=== PATIENT | male | born 1960 | race Caucasian/White ===

== ENCOUNTER 2016-05-16 17:07 | Emergency (ER) | payer OTHER ==
[~2016-05-16] VITALS: Ht 185.4 cm; Wt 88.5 kg
[2016-05-16 18:18] LABS: Basophils # (auto) 0 uL; Basophils % (auto) 0.5 % (0.0-2.0); Eosinophils # (auto) 0 uL; Eosinophils % (auto) 0.3 % (0.0-7.0); Hematocrit 46.7 % (41.0-53.0); Hemoglobin 15.3 g/dL (13.5-17.5); Lymphocytes # (auto) 0.8 uL; Lymphocytes % (auto) 12.6 % (10.0-50.0); Mean Corpuscular Hemoglobin 29.2 pg (28.0-32.0); Mean Corpuscular Hgb Conc. 32.8 g/dL (32.0-36.0); Mean Corpuscular Volume 89.2 fL (80.0-100.0); Mean Platelet Volume 9.4 fL (7.4-10.4); Monocytes # (auto) 0.5 uL; Monocytes % (auto) 8.9 % (0.0-12.0); Neutrophils # (auto) 4.8 uL; Neutrophils % (auto) 77.7 % (37.0-80.0); Platelet Count (auto) 200 10^3/uL (140-450); Red Cell Distribution Width 14.4 % (11.6-16.0); White Blood Cell 6.1 10^3/uL (4.4-10.8)
[2016-05-16 18:26] LABS: Albumin 3.8 g/dL (3.4-5.0); BUN/Creatinine Ratio 14.6; Calcium 8.8 mg/dL (8.5-10.1); Potassium 3.5 mmol/L (3.5-5.1)
[2016-05-16 18:30] LABS: Bilirubin, Total 0.3 mg/dL (0.2-1.0); Total Protein 8.1 g/dL (6.4-8.2)
[2016-05-16 20:01] LABS: Urine Bilirubin Negative (Negative); Urine Blood Negative /uL (Negative); Urine Color Yellow (Yellow); Urine Glucose Normal (Normal); Urine Ketone Negative (Negative); Urine Nitrite Negative (Negative); Urine RBC <1 /hpf (0 - 3); Urine Squamous Epithelial Cell FEW /hpf (<5); Urine pH 5.5 (5.0-8.0)
[2016-05-16] MEDS ORDERED: SODIUM CHLORIDE 0.9% 500 ML IV ONE (20:25)
[2016-05-16] MEDS ORDERED: ONDANSETRON HCL 4 MG/2 ML VIAL IV ONE (20:30)
[2016-05-16] MEDS ORDERED: HYDROmorphone HCL 2 MG/ML VL IV ONE (20:30)
[2016-05-16 21:03] VITALS: BP 150/93
== END 2016-05-16 21:59 | disposition home or self-care (01) ==
LOC: ER 17:07
DX: J20.9 Acute bronchitis, unspecified (principal); M54.5 Low back pain; M79.1 Myalgia; F17.210 Nicotine dependence, cigarettes, uncomplicated
CPT/HCPCS: 36415; 71020; 74176; 80053; 81001; 83605; 85025; 87040; 93005; 94761; 96361; 96374; 96375; 99285; J1170; J2405; J7040

== ENCOUNTER 2016-06-12 19:11 | Emergency (ER) | payer OTHER ==
[~2016-06-12] VITALS: Ht 182.9 cm; Wt 88.5 kg
[2016-06-12 19:15] VITALS: BP 139/88
[2016-06-12] MEDS ORDERED: cefTRIAXone SOD 1,000 MG VL IM ONE (20:15)
[2016-06-12 21:14] LABS: Urine Bilirubin Negative (Negative); Urine Color PINK (Yellow); Urine Glucose Normal (Normal); Urine Ketone Negative (Negative); Urine Mucus FEW (None Seen); Urine RBC 3 /hpf (0 - 3); Urine Squamous Epithelial Cell FEW /hpf (<5); Urine pH 5.5 (5.0-8.0)
[2016-06-12 21:16] LABS: Urine Blood 1+ /uL (Negative); Urine Nitrite POSITIVE (Negative)
== END 2016-06-12 20:32 | disposition home or self-care (01) ==
LOC: ER 19:24
DX: N39.0 Urinary tract infection, site not specified (principal); F17.210 Nicotine dependence, cigarettes, uncomplicated
CPT/HCPCS: 81001; 96372; 99283; J0696

== ENCOUNTER 2016-11-23 20:19 | Emergency (ER) | payer OTHER ==
[~2016-11-23] VITALS: Ht 185.4 cm; Wt 90.7 kg
[2016-11-23 20:29] VITALS: BP 143/97
[2016-11-23 21:18] LABS: Basophils # (auto) 0.1 uL; Basophils % (auto) 0.7 % (0.0-2.0); Eosinophils # (auto) 0.2 uL; Hematocrit 46.2 % (41.0-53.0); Hemoglobin 15.6 g/dL (13.5-17.5); Lymphocytes # (auto) 2.8 uL; Mean Corpuscular Hemoglobin 29.7 pg (28.0-32.0); Mean Corpuscular Hgb Conc. 33.7 g/dL (32.0-36.0); Mean Corpuscular Volume 87.9 fL (80.0-100.0); Mean Platelet Volume 8.5 fL (6.9-10.8); Monocytes # (auto) 0.8 uL; Neutrophils # (auto) 4.5 uL; Neutrophils % (auto) 54.3 % (37.0-80.0); Nucleated Red Blood Cells % 0.2 %; Platelet Count (auto) 205 10^3/uL (140-450); Red Cell Distribution Width 14.8 % (11.8-14.3); White Blood Cell 8.4 10^3/uL (4.4-10.8)
[2016-11-23 21:33] LABS: Albumin 3.8 g/dL (3.4-5.0); BUN/Creatinine Ratio 21.9; Calcium 9.3 mg/dL (8.5-10.1); Potassium 4.2 mmol/L (3.5-5.1)
[2016-11-23 21:36] LABS: Bilirubin, Total 0.6 mg/dL (0.2-1.0); Total Protein 7.9 g/dL (6.4-8.2)
== END 2016-11-24 02:57 | disposition left against medical advice (07) ==
LOC: ER 20:19
DX: R10.9 Unspecified abdominal pain (principal); Z53.21 Procedure and treatment not carried out due to patient leaving prior to being seen by health care provider
CPT/HCPCS: 36415; 71010; 74176; 80053; 82150; 83690; 85025; 93005

== ENCOUNTER 2016-11-24 18:01 | Emergency (ER) | payer OTHER ==
[~2016-11-24] VITALS: Ht 185.4 cm; Wt 90.7 kg
[2016-11-24 18:26] VITALS: BP 135/92
[2016-11-24 19:10] LABS: Urine Bilirubin Negative (Negative); Urine Blood Negative /uL (Negative); Urine Color Yellow (Yellow); Urine Glucose Normal (Normal); Urine Ketone Negative (Negative); Urine Nitrite Negative (Negative); Urine RBC <1 /hpf (0 - 3); Urine Urobilinogen Normal (Negative)
[2016-11-24 19:23] LABS: Basophils # (auto) 0.1 uL; Basophils % (auto) 1.1 % (0.0-2.0); Eosinophils # (auto) 0.3 uL; Hematocrit 48.7 % (41.0-53.0); Hemoglobin 16.3 g/dL (13.5-17.5); Lymphocytes # (auto) 2.3 uL; Lymphocytes % (auto) 29.6 % (10.0-50.0); Mean Corpuscular Hemoglobin 29.9 pg (28.0-32.0); Mean Corpuscular Hgb Conc. 33.5 g/dL (32.0-36.0); Mean Corpuscular Volume 89.4 fL (80.0-100.0); Mean Platelet Volume 8.5 fL (6.9-10.8); Monocytes # (auto) 0.6 uL; Monocytes % (auto) 7.8 % (0.0-12.0); Neutrophils # (auto) 4.5 uL; Neutrophils % (auto) 57.5 % (37.0-80.0); Nucleated Red Blood Cells % 0.2 %; Platelet Count (auto) 219 10^3/uL (140-450); Red Cell Distribution Width 15.1 % (11.8-14.3); White Blood Cell 7.9 10^3/uL (4.4-10.8)
[2016-11-24 20:12] LABS: Albumin 3.7 g/dL (3.4-5.0); BUN/Creatinine Ratio 17.6; Bilirubin, Total 0.6 mg/dL (0.2-1.0); Calcium 9.5 mg/dL (8.5-10.1); Total Protein 8.1 g/dL (6.4-8.2)
== END 2016-11-24 23:12 | disposition left against medical advice (07) ==
LOC: ER 18:03
DX: R10.9 Unspecified abdominal pain (principal); Z53.21 Procedure and treatment not carried out due to patient leaving prior to being seen by health care provider
CPT/HCPCS: 36415; 80053; 81001; 85025; 93005

== ENCOUNTER → 2022-11-16 | Emergency (ER) | payer MEDICAID, OTHER ==
[~2022-11-16] VITALS: Ht 185.4 cm; Wt 84.8 kg
[2022-11-16 22:40] VITALS: BP 138/83; PULSE 94; RESP 18; O2SAT 94
[2022-11-16 23:17] LABS: Basophils # (auto) 0.2 10 ^3/uL (0-0.2); Basophils % (auto) 1.4 % (0.0-2.0); Eosinophils # (auto) 0.3 10 ^3/uL (0-0.8); Eosinophils % (auto) 2.5 % (0.0-7.0); Hematocrit 43.3 % (41.0-53.0); Hemoglobin 14.3 g/dL (13.5-17.5); Lymphocytes % (auto) 25.3 % (10.0-50.0); Mean Corpuscular Hemoglobin 29.5 pg (28.0-32.0); Mean Corpuscular Hgb Conc. 33.1 g/dL (32.0-36.0); Mean Corpuscular Volume 89.4 fL (80.0-100.0); Monocytes # (auto) 1.2 10 ^3/uL (0-1.3); Monocytes % (auto) 10.4 % (0.0-12.0); Neutrophils # (auto) 7.1 10 ^3/uL (1.6-8.6); Neutrophils % (auto) 60.4 % (37.0-80.0); Nucleated Red Blood Cells % 0.1 %; Red Blood Cells 4.84 10^6/uL (4.5-5.90); Red Cell Distribution Width 14.7 % (11.8-14.3); White Blood Cell 11.8 10^3/uL (4.4-10.8)
[2022-11-16 23:34] LABS: Alanine Aminotransferase 69 U/L (7-40); Albumin 4.2 g/dL (3.2-4.8); Alkaline Phosphatase 89 U/L (46-116); Anion Gap 10 (5-15); Aspartate Aminotransferase 100 U/L (13-40); Blood Urea Nitrogen 20 mg/dL (9-23); Calcium 9.5 mg/dL (8.7-10.4); Carbon Dioxide 22 mmol/L (20-30); Chloride 107 mmol/L (98-107); Glucose 106 mg/dL (74-106); Potassium 4.1 mmol/L (3.5-5.1); Sodium 139 mmol/L (136-145)
[2022-11-16 23:35] LABS: Bilirubin, Total 1.1 mg/dL (0.2-1.0)
== END | disposition left against medical advice (07) ==
LOC: ER 22:24
DX: R42 Dizziness and giddiness (principal); R06.03 Acute respiratory distress; R22.1 Localized swelling, mass and lump, neck; M25.512 Pain in left shoulder; Z53.21 Procedure and treatment not carried out due to patient leaving prior to being seen by health care provider
CPT/HCPCS: 36415; 70450; 71046; 72125; 80053; 85025

== ENCOUNTER 2024-03-20 22:09 | Inpatient (IN) | payer MEDICAID, MEDICARE, OTHER ==
[~2024-03-20] VITALS: Ht 182.9 cm; Wt 82.0 kg
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
[2024-03-20 23:10] LABS: Basophils # (auto) 0.2 10 ^3/uL (0-0.2); Basophils % (auto) 1.4 % (0.0-2.0); Eosinophils # (auto) 0.2 10 ^3/uL (0-0.8); Eosinophils % (auto) 1.5 % (0.0-7.0); Hematocrit 39.9 % (41.0-53.0); Hemoglobin 13.4 g/dL (13.5-17.5); Lymphocytes # (auto) 1.7 10 ^3/uL (0.4-5.4); Mean Corpuscular Hemoglobin 28.5 pg (28.0-32.0); Mean Corpuscular Hgb Conc. 33.5 g/dL (32.0-36.0); Mean Corpuscular Volume 85.1 fL (80.0-100.0); Monocytes # (auto) 1.3 10 ^3/uL (0-1.3); Monocytes % (auto) 9.7 % (0.0-12.0); Neutrophils # (auto) 9.8 10 ^3/uL (1.6-8.6); Neutrophils % (auto) 74.4 % (37.0-80.0); Platelet Count (auto) 316 10^3/uL (140-450); Red Blood Cells 4.69 10^6/uL (4.5-5.90); Red Cell Distribution Width 15.4 % (11.8-14.3); White Blood Cell 13.1 10^3/uL (4.4-10.8)
[2024-03-20 23:17] LABS: Alanine Aminotransferase 28 U/L (7-40); Albumin 4.1 g/dL (3.2-4.8); Alkaline Phosphatase 85 U/L (46-116); Anion Gap 8 (5-15); Aspartate Aminotransferase 22 U/L (13-40); BUN/Creatinine Ratio 10.8 (10.0-20.0); Calcium 9.6 mg/dL (8.7-10.4); Carbon Dioxide 25 mmol/L (20-31); Chloride 104 mmol/L (98-107); Potassium 3.7 mmol/L (3.5-5.1); Sodium 137 mmol/L (136-145)
[2024-03-20 23:18] LABS: Bilirubin, Total 0.5 mg/dL (0.2-1.0); Total Protein 7.2 g/dL (5.7-8.2)
[2024-03-20 23:25] VITALS: PULSE 85; RESP 17; O2SAT 95
[2024-03-20 23:25] LABS: Blood Urea Nitrogen 9 mg/dL (9-23); Glucose 109 mg/dL (74-106)
[2024-03-20 23:27] LABS: Lactic Acid w/Reflex 2.1 mmol/L (0.4-2.0)
[2024-03-20] MEDS: MORPHINE SULFATE 4 MG/ML SYR/VIAL IV ONE (23:28)
[2024-03-20] MEDS: ONDANSETRON HCL 4 MG/2 ML VIAL IV ONE (23:29)
[2024-03-20] MEDS: PIPERACILLIN-TAZOB 3.375GM 100 ML IV ONE (23:29)
[2024-03-20] MEDS: SODIUM CHLORIDE 0.9% 1,000 ML IV ONE (23:38)
[2024-03-21] VITALS (7 sets, daily range): BP systolic 117–126; BP diastolic 64–81; PULSE 85–95; RESP 18–20; TEMP 98.2–98.4; O2SAT 93–98
[2024-03-21] MEDS ORDERED: VANCOMYCIN PER PHARMACY 0 MG IV SCH (03:15)
[2024-03-21] MEDS ORDERED: MORPHINE SULFATE INJ 2 MG/ml SYRG IV PRN (03:15)
[2024-03-21] MEDS ORDERED: TEMAZEPAM 15 MG CAP PO PRN (03:15)
[2024-03-21] MEDS ORDERED: ONDANSETRON HCL 4 MG/2 ML VIAL IV PRN (03:15)
[2024-03-21] MEDS ORDERED: ACETAMINOPHEN 325 MG TAB PO PRN (03:15)
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
[2024-03-21] MEDS: VANCOMYCIN 1GM/250mL NS or D5W KIT IV SCH (03:37)
--- NOTE | 2024-03-21 03:50 | DVH ---
INDICATION: Cellulitis COMPARISON: None. TECHNIQUE: CT of the left ankle was performed without contrast. Volume transverse images were obtaine d and reconstructed in multiple planes using bone and soft tissue algorithms. CONTRAST: None. Radiation Dose: DLP 11.72 mGy.cm; CTDI 1278.07 mGy. FINDINGS: The alignment is normal. The joint spaces are normal. The ankle mortise and distal tibiotalar joint are intact. There is no fracture, dislocation or aggressive osseous lesion. The talar dome is intact. There is no tibiotalar joint effusion. There is diffuse subcutaneous edema noted in the distal foreleg with skin thickening and induration, subcutaneous fluid extending to the ankle and foot. No obvious drainable fluid collection is identif ied however evaluation is somewhat limited without the benefit of intravenous contrast. IMPRESSION: Diffuse edema, skin thickening and induration in the distal aspect of the leg, worst at the level of the ankle and foot. No obvious drainable fluid collection however evaluation is somewhat limited wit hout the benefit of intravenous contrast. Please correlate clinically. All CT scans at this medical facility are performed using dose modulation techniques as appropriate t o a performed exam including the following: Automated exposure control was utilized; adjustment of th e MA and/or KV according to patient size; and use of iterative reconstruction technique.
[2024-03-21] MEDS: PIPERACILLIN-TAZOB 3.375GM 100 ML IV SCH (06:07)
[2024-03-21 07:37] LABS: Urine Bacteria None Seen /hpf (None Seen)
[2024-03-21] MEDS: ENOXAPARIN SOD 40 MG/0.4 ML SYRINGE SC SCH (07:52)
[2024-03-21 07:53] LABS: Urine Blood Negative /uL (Negative); Urine Clarity Clear (Clear); Urine Color Yellow (Yellow); Urine Mucus FEW (None Seen); Urine Protein, UAD TRACE (Negative); Urine Specific Gravity 1.029 (1.001-1.035); Urine Squamous Epithelial Cell FEW /hpf (<5); Urine Urobilinogen 2 mg/dL (Negative); Urine WBC 20 /HPF (0-3); Urine pH 5.5 (5.0-9.0)
--- NOTE | 2024-03-21 08:34 | DVH ---
Clinical History: Swelling, r/o dvt Comparison: None Technique: Duplex Doppler evaluation of the deep venous system of the left lower extremity from the common femor al vein to the popliteal vein including color Doppler and spectral/pulsed waveform analysis was perfo rmed. Findings: The common femoral vein demonstrates appropriate compressibility and waveform variability. There is compressibility/patency of the great saphenous vein at the proximal thigh. The femoral vein demonstrates appropriate compressibility and waveform variability. The deep femoral vein demonstrates appropriate compressibility and waveform variability. The popliteal vein demonstrates appropriate compressibility and waveform variability. There is normal compressibility at the tibioperoneal trunk. Impression: No leftdeep venous thrombosis. If clinical concern/symptoms persist or worsen, short-interval follow-up study is suggested.
[2024-03-21 09:13] LABS: Cocaine Screen, Urine Neg (NEGATIVE)
[2024-03-21 09:39] LABS: Erythrocyte Sedimentation Rate 35 mm/hr (0-20)
[2024-03-21] MEDS ORDERED: VASELINE LIP THERAPY 10gm TOP PRN (10:15)
[2024-03-21] MEDS ORDERED: SILVER SULFADIAZINE 1 % TOPICAL CREAM 50GM TOP ONE (10:15)
[2024-03-21 10:24] LABS: Basophils # (auto) 0 10 ^3/uL (0-0.2); Basophils % (auto) 0.3 % (0.0-2.0); Eosinophils # (auto) 0.2 10 ^3/uL (0-0.8); Eosinophils % (auto) 2.1 % (0.0-7.0); Hematocrit 39.7 % (41.0-53.0); Hemoglobin 13.1 g/dL (13.5-17.5); Lymphocytes % (auto) 10.9 % (10.0-50.0); Mean Corpuscular Hemoglobin 28.1 pg (28.0-32.0); Mean Corpuscular Volume 85.1 fL (80.0-100.0); Monocytes # (auto) 0.6 10 ^3/uL (0-1.3); Monocytes % (auto) 7.2 % (0.0-12.0); Neutrophils # (auto) 7.1 10 ^3/uL (1.6-8.6); Neutrophils % (auto) 79.5 % (37.0-80.0); Nucleated Red Blood Cells % 0.2 %; Platelet Count (auto) 285 10^3/uL (140-450); Red Blood Cells 4.66 10^6/uL (4.5-5.90); Red Cell Distribution Width 15.3 % (11.8-14.3); White Blood Cell 8.9 10^3/uL (4.4-10.8)
[2024-03-21 10:27] LABS: Barbiturate Scree,Urine Neg (NEGATIVE); Benzodiazephine Screen, Urine Neg (NEGATIVE); Cannabinoid Screen, Urine Neg (NEGATIVE)
[2024-03-21] MEDS: SILVER SULFADIAZINE 1 % TOPICAL CREAM 50GM TOP SCH (10:29)
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
[2024-03-21 11:45] LABS: Alanine Aminotransferase 28 U/L (7-40); Alkaline Phosphatase 80 U/L (46-116); Anion Gap 8 (5-15); Aspartate Aminotransferase 21 U/L (13-40); BUN/Creatinine Ratio 9.2 (10.0-20.0); Blood Urea Nitrogen 10 mg/dL (9-23); Calcium 9.5 mg/dL (8.7-10.4); Carbon Dioxide 27 mmol/L (20-31); Chloride 104 mmol/L (98-107); Glucose 100 mg/dL (74-106); Potassium 3.9 mmol/L (3.5-5.1); Sodium 139 mmol/L (136-145)
[2024-03-21 11:46] LABS: Bilirubin, Total 0.7 mg/dL (0.2-1.0); Total Protein 6.9 g/dL (5.7-8.2)
--- NOTE | 2024-03-21 12:11 | DVH ---
EXAM: XY CHEST XRAY 1 VIEW Indication: crackles Technique: Single frontal view of the chest was obtained Comparison: None FINDINGS: Lines and Tubes: None Lungs: No focal consolidation. Pleura: No effusion. No pneumothorax. Cardiomediastinal contours: Unremarkable Bones: No acute osseous abnormality. IMPRESSION: No acute cardiopulmonary disease.
[2024-03-21 13:01] LABS: Opiate Scree,Urine Pos (NEGATIVE); Phencyclidine Screen, Urine Pos (NEGATIVE)
[2024-03-21 14:04] LABS: Amphetamine Screen, Urine Pos (NEGATIVE)
[2024-03-21] MEDS: AMPICILLIN & SULBACTAM SODIUM 3 GM in SODIUM CHL 0.9% 100 ML IV SCH (14:21)
[2024-03-21] MEDS: NICOTINE 14 MG/24HR TOPICAL PATCH TD ONE (14:26)
[2024-03-21] MEDS: BACITRACIN-POLYMYXIN B TOPICAL OINT UD TOP ONE (14:51)
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
[2024-03-21] MEDS: DOXYCYCLINE 100MG/100ML 100 ML IV ONE (16:26)
[2024-03-21] MEDS: VANCOMYCIN 1.25GM/250ML 250 ML IV SCH (17:32)
[2024-03-21] MEDS: HYDROcodone-ACET 5/325MG TAB PO PRN (23:03)
[2024-03-22] VITALS (7 sets, daily range): BP systolic 112–131; BP diastolic 61–81; PULSE 74–91; RESP 18–19; TEMP 97.2–98.1; O2SAT 92–94
[2024-03-22] MEDS: DOXYCYCLINE 100 MG TAB/CAP PO SCH (00:35)
[2024-03-22 06:07] LABS: Chloride 105 mmol/L (98-107); Sodium 137 mmol/L (136-145)
[2024-03-22 06:08] LABS: Anion Gap 5 (5-15); Calcium 8.9 mg/dL (8.7-10.4); Carbon Dioxide 27 mmol/L (20-31)
[2024-03-22 06:13] LABS: BUN/Creatinine Ratio 13.3 (10.0-20.0); Basophils # (auto) 0 10 ^3/uL (0-0.2); Basophils % (auto) 0.1 % (0.0-2.0); Blood Urea Nitrogen 11 mg/dL (9-23); Eosinophils # (auto) 0.3 10 ^3/uL (0-0.8); Eosinophils % (auto) 4.5 % (0.0-7.0); Glucose 87 mg/dL (74-106); Hematocrit 39.8 % (41.0-53.0); Lymphocytes # (auto) 1.3 10 ^3/uL (0.4-5.4); Mean Corpuscular Hemoglobin 27.8 pg (28.0-32.0); Mean Corpuscular Hgb Conc. 32.7 g/dL (32.0-36.0); Mean Corpuscular Volume 85.1 fL (80.0-100.0); Monocytes # (auto) 0.7 10 ^3/uL (0-1.3); Monocytes % (auto) 9.4 % (0.0-12.0); Neutrophils # (auto) 5.3 10 ^3/uL (1.6-8.6); Nucleated Red Blood Cells % 0.1 %; Platelet Count (auto) 231 10^3/uL (140-450); Red Blood Cells 4.68 10^6/uL (4.5-5.90); Red Cell Distribution Width 15.2 % (11.8-14.3); White Blood Cell 7.7 10^3/uL (4.4-10.8)
[2024-03-22] MEDS: NICOTINE 14 MG/24HR TOPICAL PATCH TD SCH (09:45)
[2024-03-22] MEDS: NEOMYCIN-BACITRACIN-POLYM UNITDOSE PKG TOP OINT TOP SCH (09:46)
[2024-03-22] MEDS ORDERED: BACITRACIN-POLYMYXIN B TOPICAL OINT UD TOP SCH (10:00)
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
--- NOTE | 2024-03-22 15:27 | DVHSR ---
APPROVED REPORT EXAM: Two-dimensional and M-mode echocardiogram with Doppler and color Doppler. Blood Pressure: 115/76 mmHg INDICATION systolic murmur, B/L pitting edema RISK FACTORS Obesity: Height: 6'0, Weight: 195 DIMENSIONS LVDd (3.8-5.7cm)LA (2D)3.8 (1.9-4.0cm)Aortic Root3.2 (2.0-3.7cm) LVDs (2.5-4.0cm)LA (MM) (1.9-4.0cm)Aortic Cusp Exc1.0 (1.5-2.0cm) EF (%) 58.0 (55-70%)Rt. Atrium3.7 (1.9-4.0cm)Asc. Aorta cm Mitral Valve MitralMitral Stenosis E wave0.90m/sMV Mean GR.mmHg A wave1.05m/sMV Peak GR.124mmHg E/A ratio0.92D MVAcm2 DECEL [id number] 1/2 Timems Aortic Valve Aortic ValveAortic Stenosis V11.15m/Sky Mean GR.26mmHg V23.24m/Sky Peak GR.42mmHg LVOT Diameter2.4 (1.8-2.4cm)Doppler AVA1.60cm2 Other Information Quality : Technically LimitedRhythm : Technically limited study due to pt in deep sleep, uncooperative Conclusion lvef 65% by visual estimate normal RV function, biatiral enlargemetn moderate to severe , mean gradient of 29 mmhg,
[2024-03-23] VITALS (8 sets, daily range): BP systolic 125–137; BP diastolic 76–82; PULSE 77–89; RESP 18–21; TEMP 97.2–98.9; O2SAT 94–100
[2024-03-23] MEDS: VANCOMYCIN 1.25GM/250ML 250 ML IV ONE (04:43)
[2024-03-23 06:31] LABS: Basophils # (auto) 0 10 ^3/uL (0-0.2); Basophils % (auto) 0.2 % (0.0-2.0); Eosinophils # (auto) 0.4 10 ^3/uL (0-0.8); Eosinophils % (auto) 5.4 % (0.0-7.0); Hematocrit 39.5 % (41.0-53.0); Hemoglobin 13.1 g/dL (13.5-17.5); Lymphocytes # (auto) 1.5 10 ^3/uL (0.4-5.4); Lymphocytes % (auto) 19.3 % (10.0-50.0); Mean Corpuscular Hgb Conc. 33.1 g/dL (32.0-36.0); Mean Corpuscular Volume 84.4 fL (80.0-100.0); Monocytes # (auto) 0.6 10 ^3/uL (0-1.3); Monocytes % (auto) 7.4 % (0.0-12.0); Neutrophils # (auto) 5.2 10 ^3/uL (1.6-8.6); Neutrophils % (auto) 67.7 % (37.0-80.0); Nucleated Red Blood Cells % 0.5 %; Platelet Count (auto) 266 10^3/uL (140-450); Red Blood Cells 4.69 10^6/uL (4.5-5.90); Red Cell Distribution Width 15.4 % (11.8-14.3); White Blood Cell 7.6 10^3/uL (4.4-10.8)
[2024-03-23 06:41] LABS: Anion Gap 6 (5-15); Carbon Dioxide 27 mmol/L (20-31); Chloride 104 mmol/L (98-107); Potassium 4.1 mmol/L (3.5-5.1); Sodium 137 mmol/L (136-145)
[2024-03-23 06:43] LABS: Calcium 9.3 mg/dL (8.7-10.4)
[2024-03-23 06:47] LABS: Glucose 87 mg/dL (74-106)
[2024-03-23 06:48] LABS: BUN/Creatinine Ratio 12.9 (10.0-20.0); Blood Urea Nitrogen 11 mg/dL (9-23)
[2024-03-23] MEDS: IOHEXOL 300 MG/ML 100ML BOTTLE IJ ONE (12:02)
[2024-03-23] MEDS: SODIUM CHLORIDE 0.9% 1,000 ML IV ONE (13:11)
--- NOTE | 2024-03-23 15:51 | MEDREC ---
[facility] ASP Intervention Section I [facility] ASP Intervention: Deescalate AB based on CS (The final wound culture showed Beta-Hemolytic Group A Streptococcus + Staphylococcus aureus which are susceptible to Unasyn and Doxycyline. Please consider discontinuing Vancomycin based on culture result) SANG QUINTANILLA Mar 23, 2024 15:51
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
[2024-03-24] VITALS (7 sets, daily range): BP systolic 124–140; BP diastolic 80–93; PULSE 73–92; RESP 17–19; TEMP 97.5–98; O2SAT 92–94
[2024-03-24 06:23] LABS: Basophils # (auto) 0 10 ^3/uL (0-0.2); Basophils % (auto) 0.3 % (0.0-2.0); Eosinophils # (auto) 0.3 10 ^3/uL (0-0.8); Eosinophils % (auto) 3.6 % (0.0-7.0); Hematocrit 40.9 % (41.0-53.0); Hemoglobin 13.4 g/dL (13.5-17.5); Lymphocytes # (auto) 1.5 10 ^3/uL (0.4-5.4); Lymphocytes % (auto) 17.5 % (10.0-50.0); Mean Corpuscular Hemoglobin 27.6 pg (28.0-32.0); Mean Corpuscular Hgb Conc. 32.7 g/dL (32.0-36.0); Mean Corpuscular Volume 84.5 fL (80.0-100.0); Monocytes # (auto) 0.6 10 ^3/uL (0-1.3); Monocytes % (auto) 7.4 % (0.0-12.0); Neutrophils # (auto) 6.1 10 ^3/uL (1.6-8.6); Neutrophils % (auto) 71.2 % (37.0-80.0); Nucleated Red Blood Cells % 0.1 %; Platelet Count (auto) 282 10^3/uL (140-450); Red Blood Cells 4.84 10^6/uL (4.5-5.90); White Blood Cell 8.6 10^3/uL (4.4-10.8)
[2024-03-24 06:46] LABS: Alanine Aminotransferase 29 U/L (7-40); Albumin 3.6 g/dL (3.2-4.8); Alkaline Phosphatase 68 U/L (46-116); Anion Gap 8 (5-15); Aspartate Aminotransferase 30 U/L (13-40); BUN/Creatinine Ratio 16.5 (10.0-20.0); Blood Urea Nitrogen 14 mg/dL (9-23); Calcium 9.5 mg/dL (8.7-10.4); Carbon Dioxide 25 mmol/L (20-31); Chloride 104 mmol/L (98-107); Glucose 86 mg/dL (74-106); Potassium 3.9 mmol/L (3.5-5.1); Sodium 137 mmol/L (136-145); Total Protein 6.5 g/dL (5.7-8.2)
[2024-03-24 06:51] LABS: Bilirubin, Total 0.3 mg/dL (0.2-1.0)
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
[2024-03-24 11:59] LABS: Erythrocyte Sedimentation Rate 35 mm/hr (0-20)
[2024-03-24] MEDS ORDERED: DOXY150C6 PO (12:00)
[2024-03-24] MEDS ORDERED: AUG875T PO (12:03)
[2024-03-24] MEDS ORDERED: DOXY1CAP57 PO (12:03)
== END 2024-03-24 18:45 | disposition home or self-care (01) | DRG 935 ==
LOC: ER 22:09 → OVERFLOW 03-21 03:05 → EAST 03-21 18:34
PROVIDERS: ADMIT Student in an Organized Health Care Education/Training Program; ATTEND Internal Medicine
DX: T22.211A Burn of second degree of right forearm, initial encounter (principal); L03.116 Cellulitis of left lower limb; E87.20 Acidosis, unspecified; N30.00 Acute cystitis without hematuria; D64.9 Anemia, unspecified; I35.0 Nonrheumatic aortic (valve) stenosis; F17.210 Nicotine dependence, cigarettes, uncomplicated; I11.0 Hypertensive heart disease with heart failure; I50.9 Heart failure, unspecified; R23.4 Changes in skin texture; B95.0 Streptococcus, group A, as the cause of diseases classified elsewhere; I49.3 Ventricular premature depolarization; X08.8XXA Exposure to other specified smoke, fire and flames, initial encounter; Y93.89 Activity, other specified; Y92.89 Other specified places as the place of occurrence of the external cause; Y99.8 Other external cause status; F11.10 Opioid abuse, uncomplicated; F15.10 Other stimulant abuse, uncomplicated; F16.10 Hallucinogen abuse, uncomplicated
CPT/HCPCS: 36415; 71045; 73200; 73700; 80048; 80053; 80202; 80307; 81001; 82306; 82607; 83036; 83605; 83880; 84443; 85025; 85652; 86141; 87040; 87077; 87186; 87205; 93306; 93971; 96365; 96375; G0378; J2405; J2543

== ENCOUNTER 2024-06-28 14:16 | Inpatient (IN) | payer MEDICARE, MEDICAID ==
[~2024-06-28] VITALS: Ht 182.9 cm; Wt 76.5 kg
[~2024-06-28 14:16] MED LIST: AUG875T PO; DOXY1CAP57 PO
--- NOTE | 2024-06-28 15:01 | ED.PDOC ---
Musculoskeletal HPI Comments HPI: Past Medical History: Past Surgical History: Tonsillectomy Social History: Marijuana use HPI: Poor Historian. 63-year-old male presents emergency department for evaluation of left lower extremity pain and swelling and redness. Patient had multiple wounds on his left lower extremity [id number]. Patient has history of left leg cellulitis. Was admitted to the hospital six weeks ago for IV antibiotics which she has completed. Patient states that his symptoms recurred again. No alleviating or precipitating factors. Denies any other associated symptoms. REVIEW OF SYSTEMS: CONSTITUTIONAL: Denies acute: fever, diaphoresis, chills, generalized weakness. HEAD: Denies acute: headache, photophobia Eyes: Denies acute: Double vision, vision loss, eye pain, eye discharge. EARS: Denies acute: tinnitus, hearing loss, ear discharge, ear pain, THROAT: Denies acute: sore throat, swelling, difficulty swallowing , pain with sw allowing, change in voice. NECK: Denies acute: neck pain, neck swelling, stiff neck. HEART: Denies acute : chest pain, palpitations, LUNGS: Denies acute: SOB, wheezing, cough, hemoptysis ABDOMEN: Denies acute: abdominal pain, Nausea, Vomiting, diarrhea, melena , hematemesis, hematochezia SKIN: Denies acute: itchiness. EXTREMITIES: Denies acute: numbness, tingling, weakness, Denies acute: Low back pain. Neuro: Denies acute: focal neurological deficit, motor or sensory focal neurological deficit, tremors, seizure like activity, confusion, dizziness, change in mental status, loss of bowel or bladder function, cauda equina like symptoms. : Denies acute: dysuria, hematuria, flank pain, increase in urinary frequency. PSYCH: Denies acute: hallucination, suicidal ideation, homicidal ideation. PHYSICAL EXAM: General: ----mild----acute distress, awake and alert. Head: normocephalic, atraumatic. Neck: supple, trachea is midline, no swelling. Throat: Normal phonation. Eyes:, no erythema, no purulent discharge, no proptosis, no icterus. Heart: regular rate, regular rhythm, no significant murmur appreciated. Lungs: no apparent respiratory distress, Able to speak in full sentences. No wheezing, no rhonchi, no crackles. No stridors Clear to auscultation bilaterally. Abdomen: non tender to palpation, non distended, soft, no guarding, no rebound, + bowel sounds. Neuro: Awake, Alert, oriented to name, self, situation, follows commands GCS=15. Speech is normal. Skin: no petechia, no purpura, no cyanosis, non-pale, not jaundice. Evaluation of the left lower extremity: Noted 2/4 pitting edema. Noted multiple wounds with the associated erythema. There is one above his heal and there are two on the anterior brown and one below the left knee. Patient is neurovascularly intact in the affected extremity. Pedal pulses palpable. Sensory and motor are present. Patient has some generalized tenderness to palpation over the wounds/cellulitis Makes eye contact. moves all four extremities. Face: no apparent facial droop. Ambulating in the ED independently. ED COURSE: Chief Complaint: Lower Extremity Time Seen by MD: 14:45 Primary Care Provider: none Reviewed Notes: Nurses Notes, Medications, Allergies Allergies: Coded Allergies: NO KNOWN ALLERGIES (Unverified , 01/27/11) Home Meds No Active Prescriptions or Reported Meds Information Source: Patient Mode of Arrival: Ambulatory Location: Left Extremity Location: Foot Past Medical History PAST MEDICAL HISTORY: Denies Surgical History: Tonsillectomy Family History Family History: Reviewed,noncontributory to illness, Unknown Social History Smoker: Non-Smoker Alcohol: Denies ETOH Use Drugs: Marijuana Lives In: Home Was a procedure done? Was a procedure done?: No Differential Diagnosis EXT Differential Diagnosis: Cellulitis, CHF, Deep Vein Thrombosis, Compartment Syndrome, Fracture, Sprain, Dislocation, Neurovascular injury, Other (Leg swellingDdx include but not limited to DVT, ischemic limb, pitting edema, volume overload, CHF, cellulitis, hematoma, compartment syndrome, dependent edema, venous stasis.) X-Ray, Labs, Meds, VS Vital Signs Date Time Temp Pulse Resp B/P (MAP) Pulse Ox O2 Delivery O2 Flow Rate FiO2 06/28/24 17:17 97.6 81 17 137/92 (107) 96 97.6 06/28/24 15:09 97.4 87 16 106/90 (95) 97 97.4 Lab Test 06/28/24 15:18 Range/Units White Blood Count 7.5 4.4-10.8 10^3/uL Red Blood Count 5.36 4.5-5.90 10^6/uL Hemoglobin 15.5 13.5-17.5 g/dL Hematocrit 46.6 41.0-53.0 % Mean Corpuscular Volume 86.8 80.0-100.0 fL Mean Corpuscular Hemoglobin 28.9 28.0-32.0 pg Mean Corpuscular Hemoglobin Concent 33.3 32.0-36.0 g/dL Red Cell Distribution Width 15.7 H 11.8-14.3 % Platelet Count 223 140-450 10^3/uL Mean Platelet Volume 9.5 6.9-10.8 fL Neutrophils (%) (Auto) 65.2 37.0-80.0 % Lymphocytes (%) (Auto) 22.5 10.0-50.0 % Monocytes (%) (Auto) 8.7 0.0-12.0 % Eosinophils (%) (Auto) 2.8 0.0-7.0 % Basophils (%) (Auto) 0.8 0.0-2.0 % Neutrophils # (Auto) 4.9 1.6-8.6 10 ^3/uL Lymphocytes # (Auto) 1.7 0.4-5.4 10 ^3/uL Monocytes # (Auto) 0.7 0-1.3 10 ^3/uL Eosinophils # (Auto) 0.2 0-0.8 10 ^3/uL Basophils # (Auto) 0.1 0-0.2 10 ^3/uL Nucleated Red Blood Cells 0.2 % Erythrocyte Sedimentation Rate 20 0-20 mm/hr Sodium Level 141 136-145 mmol/L Potassium Level 4.5 3.5-5.1 mmol/L Chloride Level 106 98-107 mmol/L Carbon Dioxide Level 28 20-31 mmol/L Anion Gap 7 5-15 Blood Urea Nitrogen 18 9-23 mg/dL Creatinine 0.96 0.700-1.30 mg/dL Glomerular Filtration Rate Calc 88 >90 mL/min BUN/Creatinine Ratio 18.8 10.0-20.0 Serum Glucose 92 74-106 mg/dL Lactic Acid Level 1.3 0.4-2.0 mmol/L Calcium Level 10.2 8.7-10.4 mg/dL Magnesium Level 2.1 1.6-2.6 mg/dL Total Bilirubin 1.1 H 0.2-1.0 mg/dL Aspartate Amino Transferase (AST) 37 13-40 U/L Alanine Aminotransferase (ALT) 39 7-40 U/L Alkaline Phosphatase 106 46-116 U/L Troponin I High Sensitivity 19 </=54 ng/L C-Reactive Protein High Sensitivity 1.93 H <1.0 mg/dL B-Type Natriuretic Peptide 13.06 0-100 pg/mL Total Protein 7.4 5.7-8.2 g/dL Albumin 4.4 3.2-4.8 g/dL [place] [id number] Ph: [phone] DIAGNOSTIC IMAGING Diagnostic Imaging Report : [id number] Signed PATIENT: MOISÉS SANTA ACCT: [id number] UNIT: [id number] : 1960 LOC: ER ROOM / BED: / AGE / SEX: 63 / M ADM STATUS: REG ER SERVICE 1750 ORDERING PHYSICIAN: KELI LONG DO PROCEDURE(s): LLDVT - LT Lower DVT REASON: pain swelling wound ORDER NUMBER(s): [id number], ACCESSION NUMBER(s): [id number] Left lower extremity venous duplex Clinical History: pain swelling wound Comparison: US LT LOWER DVT on DOS: 03/21/24 Findings: Duplex Doppler evaluation of the deep venous system of the left lower extremity from the common femoral vein to the popliteal vein including color Doppler and spectral/pulsed waveform analysis was performed. The common femoral vein demonstrates appropriate compressibility and waveform variability. There is compressibility/patency of the great saphenous vein at the proximal thigh. The femoral vein demonstrates appropriate compressibility and waveform variability. The deep femoral vein demonstrates appropriate compressibility and waveform variability. The popliteal vein demonstrates appropriate compressibility and waveform variability. There is normal compressibility at the tibioperoneal trunk. Impression: 1. No left femoropopliteal venous thrombosis. 2. If clinical concern/symptoms persist or worsen, short-interval follow-up study is suggested. ATED BY: CHUY NUR MD DICTATED DATE/TIME: 06/28/24 152 SIGNED BY: CHUY NUR MD SIGNED DATE/TIME: 06/28/241520 CC: Time of 1ST Reevaluation: 15:15 Reevaluation 1ST: Unchanged Patient Education/Counseling: Diagnosis, Treatment, Prognosis Family Education/Counseling: No Family Present Comments Patient presented with the above HPI.---leg swelling and pain---workup was initiated. patient was found with the above mentioned diagnosis. the following medications were ordered: please refer to order lists of meds and tests obtained by myself Dr. Long. Patient ED course and VS have been stabilized. Patient has been reassessed in the ED and remained in a stable condition. Pertinent incidental findings were discussed with the patient and/or family. Patient/family voices understanding and is agreeable with plan. Patient has been observed in the ED adequate length of time to insure improvement/stability. Escalation of care considered: Consideration of escalation to observation or admission Antibiotics initiated. Patient was ADMITTED to the medicine team for further evaluation and treatment of their presentation. All the reports of any imaging studies that were ordered by myself were reviewed by myself. Departure 1 Departure Time of Disposition: 15:33 Impression: Primary Impression: Left leg cellulitis Disposition: ADMITTED INPATIENT Admit to: Tele Condition: Guarded e-Prescriptions No Active Prescriptions or Reported Meds Discharged With: Self Critical Care Note Critical Care Time?: No Heart Score Heart Score: Heart Score Response (Comments) Value History N/A 0 EKG N/A 0 Age N/A 0 Risk Factors N/A 0 Troponin N/A 0 Total 0 I personally scribed for KELI LONG DO ([email or web address]) on 06/28/24 at 15:01. Electronically submitted by Feliciano Amador ([email or web address]). I personally scribed for KELI LONG DO ([email or web address]) on 06/28/24 at 15:38. Electronically submitted by Feliciano Amador ([email or web address]). KELI LONG DO June 28, 2024 15:01
--- NOTE | 2024-06-28 15:23 | DVH ---
Left lower extremity venous duplex Clinical History: pain swelling wound Comparison: US LT LOWER DVT on DOS: 03/21/24 Findings: Duplex Doppler evaluation of the deep venous system of the left lower extremity from the common femor al vein to the popliteal vein including color Doppler and spectral/pulsed waveform analysis was perfo rmed. The common femoral vein demonstrates appropriate compressibility and waveform variability. There is compressibility/patency of the great saphenous vein at the proximal thigh. The femoral vein demonstrates appropriate compressibility and waveform variability. The deep femoral vein demonstrates appropriate compressibility and waveform variability. The popliteal vein demonstrates appropriate compressibility and waveform variability. There is normal compressibility at the tibioperoneal trunk. Impression: 1. No left femoropopliteal venous thrombosis. 2. If clinical concern/symptoms persist or worsen, short-interval follow-up study is suggested.
[2024-06-28 15:50] LABS: Basophils # (auto) 0.1 10 ^3/uL (0-0.2); Basophils % (auto) 0.8 % (0.0-2.0); Eosinophils # (auto) 0.2 10 ^3/uL (0-0.8); Eosinophils % (auto) 2.8 % (0.0-7.0); Hematocrit 46.6 % (41.0-53.0); Hemoglobin 15.5 g/dL (13.5-17.5); Lymphocytes # (auto) 1.7 10 ^3/uL (0.4-5.4); Lymphocytes % (auto) 22.5 % (10.0-50.0); Mean Corpuscular Hemoglobin 28.9 pg (28.0-32.0); Mean Corpuscular Hgb Conc. 33.3 g/dL (32.0-36.0); Mean Corpuscular Volume 86.8 fL (80.0-100.0); Monocytes # (auto) 0.7 10 ^3/uL (0-1.3); Monocytes % (auto) 8.7 % (0.0-12.0); Neutrophils # (auto) 4.9 10 ^3/uL (1.6-8.6); Neutrophils % (auto) 65.2 % (37.0-80.0); Nucleated Red Blood Cells % 0.2 %; Platelet Count (auto) 223 10^3/uL (140-450); Red Blood Cells 5.36 10^6/uL (4.5-5.90); Red Cell Distribution Width 15.7 % (11.8-14.3); White Blood Cell 7.5 10^3/uL (4.4-10.8)
[2024-06-28 15:57] LABS: Alanine Aminotransferase 39 U/L (7-40); Albumin 4.4 g/dL (3.2-4.8); Alkaline Phosphatase 106 U/L (46-116); Anion Gap 7 (5-15); Aspartate Aminotransferase 37 U/L (13-40); BUN/Creatinine Ratio 18.8 (10.0-20.0); Bilirubin, Total 1.1 mg/dL (0.2-1.0); Blood Urea Nitrogen 18 mg/dL (9-23); Calcium 10.2 mg/dL (8.7-10.4); Carbon Dioxide 28 mmol/L (20-31); Chloride 106 mmol/L (98-107); Glucose 92 mg/dL (74-106); Magnesium 2.1 mg/dL (1.6-2.6); Potassium 4.5 mmol/L (3.5-5.1); Sodium 141 mmol/L (136-145); Total Protein 7.4 g/dL (5.7-8.2)
[2024-06-28 16:07] LABS: CRP High Sensitivity 1.93 mg/dL (<1.0)
[2024-06-28] MEDS: CLINDAMYCIN 900MG IV 50 ML IV ONE (16:30)
[2024-06-28 16:35] LABS: Erythrocyte Sedimentation Rate 20 mm/hr (0-20)
--- NOTE | 2024-06-28 18:13 | DVHHP2 ---
Admitting Diagnosis: left leg ulcer History of Present Illness 63-year-old male presents emergency department for evaluation of left lower extremity pain and swelling and redness. Patient had multiple wounds on his left lower extremity [id number]. Patient has history of left leg cellulitis. Was admitted to the hospital six weeks ago for IV antibiotics which she has completed. Patient states that his symptoms recurred again. No alleviating or precipitating factors. Denies any other associated symptoms. REVIEW OF SYSTEMS: CONSTITUTIONAL: Denies acute: fever, diaphoresis, chills, generalized weakness. HEAD: Denies acute: headache, photophobia Eyes: Denies acute: Double vision, vision loss, eye pain, eye discharge. EARS: Denies acute: tinnitus, hearing loss, ear discharge, ear pain, THROAT: Denies acute: sore throat, swelling, difficulty swallowing , pain with swallowing, change in voice. NECK: Denies acute: neck pain, neck swelling, stiff neck. HEART: Denies acute : chest pain, palpitations, LUNGS: Denies acute: SOB, wheezing, cough, hemoptysis ABDOMEN: Denies acute: abdominal pain, Nausea, Vomiting, diarrhea, melena , hematemesis, hematochezia SKIN: Denies acute: itchiness. EXTREMITIES: Denies acute: numbness, tingling, weakness, Denies acute: Low back pain. Neuro: Denies acute: focal neurological deficit, motor or sensory focal neurological deficit, tremors, seizure like activity, confusion, dizziness, change in mental status, loss of bowel or bladder function, cauda equina like symptoms. : Denies acute: dysuria, hematuria, flank pain, increase in urinary frequency. PSYCH: Denies acute: hallucination, suicidal ideation, homicidal ideation. PAST MEDICAL HISTORY: Denies Surgical History: Tonsillectomy Family History Family History: Reviewed,noncontributory to illness, Unknown Social History Smoker: Non-Smoker Alcohol: Denies ETOH Use Drugs: Marijuana Lives In: Home Patient Family History: Cardiovascular disease G8 MOTHER G8 FATHER Allergies: Coded Allergies: NO KNOWN ALLERGIES (Unverified , 01/27/11) Home Meds Active Scripts Amoxicillin & Pot Clavulanate (AUGMENTIN TABLET) 875 Mg Tb, 875 MG PO BID for 10 Days, #20 TAB 0 Refills Prov:BEATRIZ MORALES MD 03/24/24 Doxycycline Monohydrate (Doxycycline Monohydrate) 100 Mg Cap, 1 CAP PO BID, #28 CAP Prov:BEATRIZ MORALES MD 03/24/24 Current Medications Current Medications Medications (Trade) Dose Ordered Sig/Marya Route PRN Reason Start Time Stop Time Status Last Admin Clindamycin Phosphate 50 ml @ 50 mls/hr Q8H IV 06/28/24 18:15 Saccharomyces Boulardii (Florastor) 250 mg DAILY PO 06/29/24 10:00 Sodium Chloride (Saline Lock Ns) 10 ml Q8HR IV 06/28/24 22:00 Docusate Sodium (Colace Capsule) 100 mg BIDPRN PRN PO FOR CONSTIPATION 06/28/24 18:15 Acetaminophen (Tylenol Tablet) 650 mg Q6HP PRN PO PAIN SCALE 1-3 OR TEMP>100.4 06/28/24 18:15 Acetaminophen/ Hydrocodone Bitart (Anita 5/325MG Tab) 1 tab Q4HP PRN PO MODERATE PAIN (4-6 PAIN SCALE) 06/28/24 18:15 Ondansetron HCl (Zofran) 4 mg Q4HP PRN IV NAUSEA / VOMITING 06/28/24 18:15 Enoxaparin Sodium (Lovenox) 40 mg DAILY SC 06/29/24 10:00 Vital Signs Vital Signs Date Time Temp Pulse Resp B/P (MAP) Pulse Ox O2 Delivery O2 Flow Rate FiO2 06/28/24 17:17 97.6 81 17 137/92 (107) 96 97.6 Physical Exam Generally-63 years old male, well nourished well developed, disheveled, no apparent distress HEENT-atraumatic, normocephalic Heart-regular rate and rhythm lungs clear to auscultate bilaterally Abdomen soft nontender nondistended Musculoskeletal-left leg positive erythema with few oozing lesion. Nontender Neuro-AO x3, no focal deficits Results Labs Test 06/28/24 15:18 Range/Units White Blood Count 7.5 4.4-10.8 10^3/uL Red Blood Count 5.36 4.5-5.90 10^6/uL Hemoglobin 15.5 13.5-17.5 g/dL Hematocrit 46.6 41.0-53.0 % Mean Corpuscular Volume 86.8 80.0-100.0 fL Mean Corpuscular Hemoglobin 28.9 28.0-32.0 pg Mean Corpuscular Hemoglobin Concent 33.3 32.0-36.0 g/dL Red Cell Distribution Width 15.7 H 11.8-14.3 % Platelet Count 223 140-450 10^3/uL Mean Platelet Volume 9.5 6.9-10.8 fL Neutrophils (%) (Auto) 65.2 37.0-80.0 % Lymphocytes (%) (Auto) 22.5 10.0-50.0 % Monocytes (%) (Auto) 8.7 0.0-12.0 % Eosinophils (%) (Auto) 2.8 0.0-7.0 % Basophils (%) (Auto) 0.8 0.0-2.0 % Neutrophils # (Auto) 4.9 1.6-8.6 10 ^3/uL Lymphocytes # (Auto) 1.7 0.4-5.4 10 ^3/uL Monocytes # (Auto) 0.7 0-1.3 10 ^3/uL Eosinophils # (Auto) 0.2 0-0.8 10 ^3/uL Basophils # (Auto) 0.1 0-0.2 10 ^3/uL Nucleated Red Blood Cells 0.2 % Erythrocyte Sedimentation Rate 20 0-20 mm/hr Sodium Level 141 136-145 mmol/L Potassium Level 4.5 3.5-5.1 mmol/L Chloride Level 106 98-107 mmol/L Carbon Dioxide Level 28 20-31 mmol/L Anion Gap 7 5-15 Blood Urea Nitrogen 18 9-23 mg/dL Creatinine 0.96 0.700-1.30 mg/dL Glomerular Filtration Rate Calc 88 >90 mL/min BUN/Creatinine Ratio 18.8 10.0-20.0 Serum Glucose 92 74-106 mg/dL Lactic Acid Level 1.3 0.4-2.0 mmol/L Calcium Level 10.2 8.7-10.4 mg/dL Magnesium Level 2.1 1.6-2.6 mg/dL Total Bilirubin 1.1 H 0.2-1.0 mg/dL Aspartate Amino Transferase (AST) 37 13-40 U/L Alanine Aminotransferase (ALT) 39 7-40 U/L Alkaline Phosphatase 106 46-116 U/L Troponin I High Sensitivity 19 </=54 ng/L C-Reactive Protein High Sensitivity 1.93 H <1.0 mg/dL B-Type Natriuretic Peptide 13.06 0-100 pg/mL Total Protein 7.4 5.7-8.2 g/dL Albumin 4.4 3.2-4.8 g/dL Primary Diagnosis bilateral lower leg cellulitis Plan Not septic, no WBC, ESR normal Mildly elevated CRP Clindamycin 600 mg b.i.d. for purulent cellulitis ivf pain control' check a1c full code Lovenox for dvt ppx regular diet Plan discussed with: Patient Problems List: (1) Left leg cellulitis Status: Acute Date of Service: June 28, 2024 Billing Provider: BRIEN BUSTILLO MD Common Visit Codes: [id number] INP/OBS CARE (MOD) BIREN BUSTILLO MD June 28, 2024 18:13
[2024-06-28] MEDS ORDERED: ACETAMINOPHEN 325 MG TAB PO PRN (18:15)
[2024-06-28] MEDS ORDERED: DOCUSATE SOD 100 MG CAP PO PRN (18:15)
[2024-06-28] MEDS ORDERED: ONDANSETRON HCL 4 MG/2 ML VIAL IV PRN (18:15)
[2024-06-28 20:30] VITALS: PULSE 68; RESP 16; O2SAT 97
[2024-06-28 20:33] VITALS: BP 128/82; PULSE 70; RESP 18; TEMP 97.7; O2SAT 96
[2024-06-28] MEDS: LACTATED RINGER'S 1,000 ML IV ONE (20:44)
[2024-06-28] MEDS ORDERED: hydrALAZINE HCL 20 MG/ML VL IV PRN (20:45)
[2024-06-28] MEDS: CLINDAMYCIN 600MG IV 50 ML IV SCH (20:45)
[2024-06-28] MEDS: SODIUM CHLOR 0.9% PF (SALINE LOCK) 10ML VIAL/SYR IV SCH (21:00)
[2024-06-28 23:30] VITALS: BP 125/78; PULSE 78; RESP 18; TEMP 97.4; O2SAT 96
[2024-06-29] VITALS (8 sets, daily range): BP systolic 97–124; BP diastolic 53–72; PULSE 66–90; RESP 16–20; TEMP 97.4–97.9; O2SAT 93–98
[2024-06-29] MEDS: HYDROcodone-ACET 5/325MG TAB PO PRN (03:32)
[2024-06-29 06:04] LABS: Basophils # (auto) 0 10 ^3/uL (0-0.2); Basophils % (auto) 0.7 % (0.0-2.0); Eosinophils # (auto) 0.2 10 ^3/uL (0-0.8); Eosinophils % (auto) 3.5 % (0.0-7.0); Hematocrit 39.6 % (41.0-53.0); Hemoglobin 13.3 g/dL (13.5-17.5); Lymphocytes # (auto) 1.6 10 ^3/uL (0.4-5.4); Mean Corpuscular Hemoglobin 28.9 pg (28.0-32.0); Mean Corpuscular Hgb Conc. 33.7 g/dL (32.0-36.0); Mean Corpuscular Volume 85.9 fL (80.0-100.0); Monocytes # (auto) 0.6 10 ^3/uL (0-1.3); Monocytes % (auto) 10.3 % (0.0-12.0); Neutrophils # (auto) 3.2 10 ^3/uL (1.6-8.6); Neutrophils % (auto) 56.5 % (37.0-80.0); Nucleated Red Blood Cells % 0.2 %; Platelet Count (auto) 177 10^3/uL (140-450); Red Cell Distribution Width 15.7 % (11.8-14.3); White Blood Cell 5.7 10^3/uL (4.4-10.8)
[2024-06-29 06:27] LABS: Alanine Aminotransferase 27 U/L (7-40); Albumin 3.6 g/dL (3.2-4.8); Alkaline Phosphatase 82 U/L (46-116); Anion Gap 7 (5-15); Aspartate Aminotransferase 28 U/L (13-40); BUN/Creatinine Ratio 19.8 (10.0-20.0); Blood Urea Nitrogen 19 mg/dL (9-23); Calcium 9.5 mg/dL (8.7-10.4); Carbon Dioxide 27 mmol/L (20-31); Chloride 105 mmol/L (98-107); Glucose 91 mg/dL (74-106); Potassium 3.8 mmol/L (3.5-5.1); Sodium 139 mmol/L (136-145); Total Protein 6.2 g/dL (5.7-8.2)
[2024-06-29 06:29] LABS: Bilirubin, Total 0.6 mg/dL (0.2-1.0)
[2024-06-29] MEDS: ENOXAPARIN SOD 40 MG/0.4 ML SYRINGE SC SCH (09:18)
[2024-06-29] MEDS: FLORASTOR (S. BOULARDII) 250 MG CAP PO SCH (09:18)
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
[2024-06-29] MEDS ORDERED: VANCOMYCIN PER PHARMACY 0 MG IV SCH (20:00)
[2024-06-29] MEDS: VANCOMYCIN 1GM/200ML PM 200 ML IV ONE (21:08)
[2024-06-29] MEDS: PIPERACILLIN-TAZOB 3.375GM 100 ML IV SCH (23:00)
[2024-06-30] VITALS (7 sets, daily range): BP systolic 115–127; BP diastolic 58–82; PULSE 63–87; RESP 16–20; TEMP 97.5–98.1; O2SAT 93–98
[2024-06-30 07:08] LABS: Basophils # (auto) 0 10 ^3/uL (0-0.2); Basophils % (auto) 0.4 % (0.0-2.0); Eosinophils # (auto) 0.2 10 ^3/uL (0-0.8); Eosinophils % (auto) 2.7 % (0.0-7.0); Hematocrit 41.7 % (41.0-53.0); Hemoglobin 13.7 g/dL (13.5-17.5); Lymphocytes # (auto) 1.5 10 ^3/uL (0.4-5.4); Lymphocytes % (auto) 24.8 % (10.0-50.0); Mean Corpuscular Hemoglobin 28.9 pg (28.0-32.0); Mean Corpuscular Hgb Conc. 32.9 g/dL (32.0-36.0); Mean Corpuscular Volume 87.7 fL (80.0-100.0); Monocytes # (auto) 0.5 10 ^3/uL (0-1.3); Monocytes % (auto) 7.8 % (0.0-12.0); Neutrophils # (auto) 3.9 10 ^3/uL (1.6-8.6); Neutrophils % (auto) 64.3 % (37.0-80.0); Nucleated Red Blood Cells % 0.4 %; Platelet Count (auto) 168 10^3/uL (140-450); Red Blood Cells 4.75 10^6/uL (4.5-5.90); Red Cell Distribution Width 15.8 % (11.8-14.3); White Blood Cell 6.1 10^3/uL (4.4-10.8)
[2024-06-30 07:25] LABS: Alanine Aminotransferase 28 U/L (7-40); Albumin 3.6 g/dL (3.2-4.8); Alkaline Phosphatase 78 U/L (46-116); Anion Gap 8 (5-15); Aspartate Aminotransferase 30 U/L (13-40); BUN/Creatinine Ratio 20.2 (10.0-20.0); Bilirubin, Total 0.5 mg/dL (0.2-1.0); Blood Urea Nitrogen 18 mg/dL (9-23); Calcium 9.7 mg/dL (8.7-10.4); Carbon Dioxide 26 mmol/L (20-31); Chloride 104 mmol/L (98-107); Glucose 77 mg/dL (74-106); Potassium 4.3 mmol/L (3.5-5.1); Sodium 138 mmol/L (136-145); Total Protein 6.3 g/dL (5.7-8.2)
[2024-06-30] MEDS: Ensure Enlive Vanilla 8oz Bottle PO SCH (08:26)
[2024-06-30] MEDS: VANCOMYCIN 1GM/200ML PM 200 ML IV SCH (10:56)
--- NOTE | 2024-06-30 13:21 | DVHPN2 ---
Subjective Better Less edema and erythema Changes from previous H/P or p: Changes Objective Vitals Vital Signs Date Time Temp Pulse Resp B/P (MAP) Pulse Ox O2 Delivery O2 Flow Rate FiO2 06/30/24 09:00 97.7 66 20 127/82 (97) 95 97.7 06/30/24 08:00 Room Air* 0 21 Intake/Output Intake and Output 06/30/24 07:00 Intake Total 1915 ml Output Total 900 ml Balance 1015 ml Intake Oral 1440 ml IV Total 475 ml Output Urine Total 900 ml # Voids 2 General Appearance: Alert, Oriented X3, Cooperative Cardiovascular: Regular rate, Normal S1 Abdomen: Normal bowel sounds, Soft, No tenderness Extremities: No edema (g shows erythema from the ankle up to the middle of the leg and edema), Other Medications Current Medications Medications Dose Ordered Sig/Marya Route Start Time Stop Time Status Last Admin Dose Admin Saccharomyces Boulardii 250 mg DAILY PO 06/29/24 10:00 06/30/24 08:25 250 MG Sodium Chloride 10 ml Q8HR IV 06/28/24 22:00 06/30/24 08:26 10 ML Docusate Sodium 100 mg BIDPRN PRN PO 06/28/24 18:15 Acetaminophen 650 mg Q6HP PRN PO 06/28/24 18:15 Acetaminophen/ Hydrocodone Bitart 1 tab Q4HP PRN PO 06/28/24 18:15 06/29/24 21:23 1 TAB Ondansetron HCl 4 mg Q4HP PRN IV 06/28/24 18:15 Enoxaparin Sodium 40 mg DAILY SC 06/29/24 10:00 06/30/24 08:25 40 MG Hydralazine HCl 10 mg Q6HP PRN IV 06/28/24 20:45 Enteral Nutritional Formula 240 ml DAILY@BREAKFAST PO 06/30/24 08:00 06/30/24 08:26 240 ML Piperacillin Sod/ Tazobactam Sod 100 ml @ 25 mls/hr Q8HR IV 06/29/24 22:00 06/30/24 12:56 25 MLS/HR Vancomycin HCl 0 ml @ 0 mls/hr UD IV 06/29/24 20:00 Vancomycin HCl 200 ml @ 160 mls/hr Q12H IV 06/30/24 12:00 06/30/24 10:56 160 MLS/HR Laboratory Results Laboratory Tests 06/30/24 05:03 Chemistry Test 06/30/24 05:03 Albumin 3.6 g/dL (3.2-4.8) Calcium Level 9.7 mg/dL (8.7-10.4) Total Protein 6.3 g/dL (5.7-8.2) LFT Test 06/30/24 05:03 Alanine Aminotransferase (ALT) 28 U/L (7-40) Alkaline Phosphatase 78 U/L (46-116) Aspartate Amino Transferase (AST) 30 U/L (13-40) Total Bilirubin 0.5 mg/dL (0.2-1.0) Microbiology Microbiology Date/Time Source Procedure Growth Status 06/28/24 15:45 Blood Blood Culture - Preliminary NO GROWTH AFTER 24 HOURS OF INCUBATION. Resulted Assessment/Plan Assessment/Plan Left lower extremity cellulitis No DVT Plan Continue IV antibiotics Zosyn and vancomycin Pain management as needed Lovenox for DVT prophylaxis Monitor closely The rest of the management will depend on the hospital course Full code Advance directives discussed for 17 minutes 06/30/2024: Continue the current management Cellulitis is better Continue Zosyn and vancomycin Monitor closely Plan discussed with: Patient My Orders Orders - SCOT STEPHENS MD Procedure Category Date Status Time Piperacillin-Tazob PHA 06/29/24 In Process 3.375gm (Zosyn 3.375g 22:00 Vancomycin Per PHA 06/29/24 In Process Pharmacy 20:00 Vancomycin 1gm/200ml PHA 06/30/24 In Process Pm 12:00 Vancomycin,T[facility] 07/01/24 Verified 11:00 Vancomycin Per JENNIFER 06/30/24 In Process Pharmacy Protoc 09:06 Date of Service: June 30, 2024 Billing Provider: SCOT STEPHENS MD Common Visit Codes: [id number] INP/OBS CARE(HIGH) SCOT STEPHENS MD June 30, 2024 13:21
[2024-07-01 00:47] VITALS: BP 113/55; PULSE 71; RESP 24; TEMP 97.7; O2SAT 93
[2024-07-01 04:52] VITALS: BP 120/67; PULSE 59; RESP 20; TEMP 97.8; O2SAT 95
[2024-07-01 05:57] LABS: Basophils # (auto) 0 10 ^3/uL (0-0.2); Basophils % (auto) 0.5 % (0.0-2.0); Eosinophils # (auto) 0.2 10 ^3/uL (0-0.8); Eosinophils % (auto) 3.8 % (0.0-7.0); Hematocrit 42.2 % (41.0-53.0); Hemoglobin 14.3 g/dL (13.5-17.5); Lymphocytes # (auto) 1.6 10 ^3/uL (0.4-5.4); Lymphocytes % (auto) 26.5 % (10.0-50.0); Mean Corpuscular Hemoglobin 28.8 pg (28.0-32.0); Mean Corpuscular Hgb Conc. 33.8 g/dL (32.0-36.0); Mean Corpuscular Volume 85.3 fL (80.0-100.0); Monocytes # (auto) 0.5 10 ^3/uL (0-1.3); Monocytes % (auto) 8.2 % (0.0-12.0); Neutrophils # (auto) 3.8 10 ^3/uL (1.6-8.6); Nucleated Red Blood Cells % 0.1 %; Platelet Count (auto) 191 10^3/uL (140-450); Red Blood Cells 4.95 10^6/uL (4.5-5.90); Red Cell Distribution Width 15.6 % (11.8-14.3); White Blood Cell 6.2 10^3/uL (4.4-10.8)
[2024-07-01 06:20] LABS: Alanine Aminotransferase 25 U/L (7-40); Albumin 3.7 g/dL (3.2-4.8); Alkaline Phosphatase 77 U/L (46-116); Anion Gap 9 (5-15); Aspartate Aminotransferase 28 U/L (13-40); BUN/Creatinine Ratio 14.9 (10.0-20.0); Bilirubin, Total 0.6 mg/dL (0.2-1.0); Blood Urea Nitrogen 14 mg/dL (9-23); Calcium 9.8 mg/dL (8.7-10.4); Carbon Dioxide 24 mmol/L (20-31); Chloride 105 mmol/L (98-107); Glucose 84 mg/dL (74-106); Sodium 138 mmol/L (136-145); Total Protein 6.5 g/dL (5.7-8.2)
[2024-07-01 09:00] VITALS: BP 119/72; PULSE 70; RESP 20; TEMP 98; O2SAT 100
[2024-07-01] MEDS ORDERED: AUG875T PO (11:26)
[2024-07-01] MEDS ORDERED: DOXY1CAP57 PO (11:26)
--- NOTE | 2024-07-01 11:29 | DVHDS2 ---
Discharge Summary Date of Admission June 28, 2024 at 18:05 Date of Discharge: July 01, 2024 Labs/Diagnostic Data: Laboratory Results Test 07/01/24 05:10 06/29/24 05:12 06/28/24 15:18 White Blood Count 6.2 10^3/uL (4.4-10.8) Red Blood Count 4.95 10^6/uL (4.5-5.90) Hemoglobin 14.3 g/dL (13.5-17.5) Hematocrit 42.2 % (41.0-53.0) Mean Corpuscular Volume 85.3 fL (80.0-100.0) Mean Corpuscular Hemoglobin 28.8 pg (28.0-32.0) Mean Corpuscular Hemoglobin Concent 33.8 g/dL (32.0-36.0) Red Cell Distribution Width 15.6 % (11.8-14.3) Platelet Count 191 10^3/uL (140-450) Mean Platelet Volume 9.1 fL (6.9-10.8) Neutrophils (%) (Auto) 61.0 % (37.0-80.0) Lymphocytes (%) (Auto) 26.5 % (10.0-50.0) Monocytes (%) (Auto) 8.2 % (0.0-12.0) Eosinophils (%) (Auto) 3.8 % (0.0-7.0) Basophils (%) (Auto) 0.5 % (0.0-2.0) Neutrophils # (Auto) 3.8 10 ^3/uL (1.6-8.6) Lymphocytes # (Auto) 1.6 10 ^3/uL (0.4-5.4) Monocytes # (Auto) 0.5 10 ^3/uL (0-1.3) Eosinophils # (Auto) 0.2 10 ^3/uL (0-0.8) Basophils # (Auto) 0 10 ^3/uL (0-0.2) Nucleated Red Blood Cells 0.1 % Sodium Level 138 mmol/L (136-145) Potassium Level 4.0 mmol/L (3.5-5.1) Chloride Level 105 mmol/L (98-107) Carbon Dioxide Level 24 mmol/L (20-31) Anion Gap 9 (5-15) Blood Urea Nitrogen 14 mg/dL (9-23) Creatinine 0.94 mg/dL (0.700-1.30) Glomerular Filtration Rate Calc 90 mL/min (>90) BUN/Creatinine Ratio 14.9 (10.0-20.0) Serum Glucose 84 mg/dL (74-106) Calcium Level 9.8 mg/dL (8.7-10.4) Total Bilirubin 0.6 mg/dL (0.2-1.0) Aspartate Amino Transferase (AST) 28 U/L (13-40) Alanine Aminotransferase (ALT) 25 U/L (7-40) Alkaline Phosphatase 77 U/L (46-116) Total Protein 6.5 g/dL (5.7-8.2) Albumin 3.7 g/dL (3.2-4.8) Hemoglobin A1c 5.4 % A1C (<5.7) Erythrocyte Sedimentation Rate 20 mm/hr (0-20) Lactic Acid Level 1.3 mmol/L (0.4-2.0) Magnesium Level 2.1 mg/dL (1.6-2.6) Troponin I High Sensitivity 19 ng/L (</=54) C-Reactive Protein High Sensitivity 1.93 mg/dL (<1.0) B-Type Natriuretic Peptide 13.06 pg/mL (0-100) Other Laboratory Tests 07/01/24 05:10 Brief Hx & Hospital Course: 63-year-old male no past medical history comes with a chief complaint of left lower extremity cellulitis. He had redness and pain and swelling after a fall about 2 weeks ago riding his bike DVT was ruled out He was treated with IV antibiotics here in the hospital and did well in the erythema and edema is better now Today he will be discharged home on oral antibiotics with doxycycline and Augmentin for 7 days Follow up with his primary care physician as soon as possible He says he does not have a primary care physician and therefore we will arrange for him to be seen here by Dr. Heredia in 2 weeks to be established with him as a new patient Final diagnoses: Left lower extremity cellulitis Condition at Discharge: Stable Final Diagnosis/Problems List Left lower extremity cellulitis Discharge Disposition: Home SNF Discharge Will this Physician continue t: No Discharge Instruct/Medications Diet: Cardiac 2g Na,low cholest Activity: No Restrictions, As Tolerated Follow Up/Referral: Dr. Heredia in 2 weeks Medications: Doxycycline and Augmentin for 7 days Discharge Statement: "Patient was advised to return to the ER or call 911 if any headaches, dizziness, shortness of breath, chest pain, abdominal pain, bleeding, fevers, or worsening of medical condition. Patient was counseled about treatment plan, medications, possible side effects, patientverbalized understanding. All questions were answered to the best of my ability. This discharge took greater then 30 minutes in planning, reviewing documentation, counseling the patient, and discussing with other team members." ASSESSMENT ASSESSMENT Assessment Left lower extremity cellulitis Date of Service: July 01, 2024 Billing Provider: SCOT STEPHENS MD Common Visit Codes: 17911-TQX/OBS DISCH DAY >30min SCOT STEPHENS MD July 01, 2024 11:29
[2024-07-01 12:03] VITALS: BP 119/72; PULSE 70; RESP 20; TEMP 98; O2SAT 100
== END 2024-07-01 12:20 | disposition home or self-care (01) | DRG 603 ==
LOC: ER 14:16 → OVERFLOW 18:05 → WEST WING 23:16
PROVIDERS: ADMIT Internal Medicine; ATTEND Internal Medicine
DX: L03.116 Cellulitis of left lower limb (principal); L03.115 Cellulitis of right lower limb; Z79.899 Other long term (current) drug therapy; Z82.49 Family history of ischemic heart disease and other diseases of the circulatory system
CPT/HCPCS: 36415; 80053; 80202; 83036; 83605; 83735; 83880; 84484; 85025; 85652; 86141; 87040; 93971; 96360; G0378; J2543; J3490